=== PATIENT | female | born 1985 ===

== ENCOUNTER 2024-05-29 11:33 | Outpatient (AMB) | payer OTHER, SELFPAY ==
--- NOTE | 2024-05-29 11:38 | A.OFFPC_ITS ---
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 Required: No Accompanied by: Self / Same As Patient Allergies No Known Allergies Allergy (Verified 05/29/24 11:41) Medication List - Last Reconciled 05/29/24 by Brett Persaud MD No Known Home Meds Tobacco use date assessed: 05/29/24 Dental Screening Dental Screen Date: 05/29/24 Did you have a dental visit in the last 12 months?: Yes Did you have a dental problem in the last 6 months where you did not have access to dental care?: No Was dental information given to patient?: Patient has dentist HPI DISPLAY CARD WRITER visit HPI Details Patient is a 38-year-old female came in today for establish care visit Patient have a strong family history of diabetes Lab order placed to be done fasting She also is in need of OBGYN Last time she has seen OBGYN was years ago Patient is having difficulty with concentration Patient says that she used to be very focused and did well in college with straight A's But now she will be working and her mind wanders off She is also requesting a therapy appointments She will meet with our behavior health coordinator for that I will also refer her to bridge clinic to be evaluated for ADD Follow-up appointment after the lab report if needed PFSH Surgical History Hx of appendectomy Family History Mother No problems noted. Father Throat cancer Mental health problem Substance abuse Social History Housing: House Alcohol intake: never Patient Tobacco Use Status: Never used Tobacco e-Cigarette/Vaping Use: Never Used service: No Current occupational status: employed Current occupation: therapist Current occupational exposures/hazards: No Cognitive needs: No Hearing needs: No Vision needs: No Questionnaire PHQ-9 Over the last 2 weeks, how often have you been bothered by any of the following problems? 1. Little interest or pleasure in doing things: several days 2. Feeling down, depressed, or hopeless: not at all 3. Trouble falling or staying asleep, or sleeping too much: not at all 4. Feeling tired or having little energy: not at all 5. Poor appetite or overeating: not at all 6. Feeling bad about yourself - or that you are a failure or have let yourself or your family down: several days 7. Trouble concentrating on things, such as reading the newspaper or watching television: nearly every day 8. Moving or speaking so slowly that other people could have noticed. Or the opposite - being so fidgety or restless that you have been moving around a lot more than usual: not at all 9. Thoughts that you would be better off or of hurting yourself in some way: not at all Total score: 5 Depression Screening Interpretation: Negative Depression Screening Done: Yes 08258 - PHQ-9 Billing: Yes Source: Developed by Drs. Herve Hill, Claudette Warner, Jonathan Dutton and colleagues, with an educational stewart from [employer]. Thrive Questionnaire Date Thrive assessed: 05/29/24 I am a: Patient What is your living situation today?: I have a place to live, but I am worried about losing it in the future Within the past 12 months, did the food you bought not last and you didn't have the money to get more?: I choose not to answer this question Within the past 12 months, did you worry whether your food would run out before you got money to buy more?: I choose not to answer this question Do you have trouble paying for medicines?: I choose not to answer this question Do you have trouble getting transportation to medical appointments?: No Do you have trouble paying your heating and electricity bill?: No Do you have trouble taking care of your child, family member or friend?: No Do you have trouble with day-to-day activities such as bathing, preparing meals, shopping, managing finances, etc.?: No Are you interested in more education?: I choose not to answer this question Please select the resources that you would like help with: None Currently or been in a relationship where the following occur: No concerns reported THRIVE Score: 1 AUDIT C Alcohol Use Questionnaire (AUDIT-C) 1. How often do you have a drink containing alcohol?: Monthly or less 2. How many drinks containing alcohol do you have on a typical day when you are drinking?: 1 or 2 3. How often do you have six or more drinks on one occasion?: Never Total Score: 1 NICOLAS-7 AMB Questionnaire NICOLAS-7 Feeling nervous, anxious, or on edge: 0 = Not at all Not being able to stop or control worryin = Not at all Worrying too much about different things: 0 = Not at all Trouble relaxin = Not at all Being so restless that it is hard to sit still: 0 = Not at all Becoming easily annoyed or irritable: 0 = Not at all Feeling afraid as if something awful might happen: 0 = Not at all Total NICOLAS-7 score (0-4 normal; 5-9 mild; 10-14 moderate; 15-21 severe): 0 Source: Developed by Drs. Herve Hill, Claudette Warner, Jonathan Dutton and colleagues, with an educational stewart from [employer]. Review of Systems Const Denies chills, Denies fever(s) and Denies headache(s) Eyes Denies blurry vision ENT Denies headache(s), Denies nasal discharge, Denies nasal obstruction, Denies odynophagia and Denies sinus pain Card Denies chest pain at rest and Denies chest pain with activity Resp Denies cough and Denies hemoptysis GI Denies diarrhea, Denies odynophagia, Denies vomiting and Denies hematemesis Reports as per HPI Musc Denies abnormal gait Skin/Breast Reports as per HPI Neuro Denies Neuro-related abnormal movements, Denies Abnormal speech present, Denies abnormal gait, Denies headache(s) and Denies Sensory deficit (Neuro) Psych Denies mood swings and Denies paranoia Endo Reports as per HPI Kam/Lymph Reports as per HPI Aller/Immun Reports as per HPI Physical exam (Primary Care) Vital Signs: Last Vital Signs Pulse 75 05/29/24 11:41 BP 122/80 05/29/24 11:41 Pulse Ox 98 05/29/24 11:41 BMI result Body Mass Index 26.5 Tobacco/Smoking Status: Tobacco use Status Tobacco use date assessed 05/29/24 05/29/24 11:45 Patient Tobacco Use Status Never used Tobacco 05/29/24 11:45 e-Cigarette/Vaping Use Never Used 05/29/24 11:45 PHQ-9: PHQ-9 Score PHQ-9: Total score 5 05/29/24 12:06 Depression Screening Interpretation: Negative Thrive Assessment: Date of Thrive Assessment Date Thrive assessed 05/29/24 05/29/24 11:39 Currently or been in a relationship where the following occur: No concerns reported Const General: cooperative, comfortable and no acute distress Orientation/consciousness: patient oriented x3 HENMT Head: Yes normocephalic and Yes atraumatic Eyes General: appearance normal, both eyes and all related structures Pupils: Equal, round and reactive pupils present EOM: EOMs intact bilaterally Neck Neck: Yes supple and No lymphadenopathy Thyroid: Thyroid normal Lymphatic: no lymphadenopathy noted Chest Breast/axilla palpation: normal palpation of the breasts Resp Effort & Inspection: normal respiratory effort and able to speak in complete sentences Auscultation: clear to auscultation bilaterally Cardio Heart sounds: S1 normal heart sound present and S2 normal heart sound present GI Palpation (GI): Soft to palpation and nontender Auscultation: normal bowel sounds General: Yes no CVA tenderness Back/Spine/Pelvis Back: no CVA tenderness Skin General skin exam: elasticity normal and turgor normal Neuro General: patient oriented x3 and gait normal Cranial nerves: Yes Equal, round and reactive pupils present Speech: No Abnormal speech present Sensory Exam: No Sensory deficit (Neuro) Coordination: tandem gait normal and Romberg test negative Extrem General: Yes normal exam except as noted and No edema Assessment and Plan Assessment & Plan (1) Encounter for general adult medical examination with abnormal findings: Code(s): Z00.01 - Encounter for general adult medical examination with abnormal findings (2) Disturbed concentration: Code(s): R41.840 - Attention and concentration deficit (3) Mood disorder: Code(s): F39 - Unspecified mood [affective] disorder (4) Family history of diabetes mellitus: Code(s): Z83.3 - Family history of diabetes mellitus Plan Patient is a 38-year-old female came in today for establish care visit Patient have a strong family history of diabetes Lab order placed to be done fasting She also is in need of OBGYN Last time she has seen OBGYN was years ago Patient is having difficulty with concentration Patient says that she used to be very focused and did well in college with straight A's But now she will be working and her mind wanders off She is also requesting a therapy appointments She will meet with our behavior health coordinator for that I will also refer her to bridge clinic to be evaluated for ADD Follow-up appointment after the lab report if needed Orders: Orders Lipid Panel Today F39 - Unspecified mood [affective] disorder, R41.840 - Attention and concentration deficit, Z00.01 - Encounter for general adult medical examination with abnormal findings, Z83.3 - Family history of diabetes mellitus TSH reflex Free T4 Today F39 - Unspecified mood [affective] disorder, R41.840 - Attention and concentration deficit, Z00.01 - Encounter for general adult medical examination with abnormal findings, Z83.3 - Family history of diabetes mellitus Complete Blood Count Auto Diff Today F39 - Unspecified mood [affective] disorder, R41.840 - Attention and concentration deficit, Z00.01 - Encounter for general adult medical examination with abnormal findings, Z83.3 - Family history of diabetes mellitus Comprehensive [place]. Panel Fast Today F39 - Unspecified mood [affective] disorder, R41.840 - Attention and concentration deficit, Z00.01 - Encounter for general adult medical examination with abnormal findings, Z83.3 - Family history of diabetes mellitus Referrals HARNESS RIGGER Referral Z01.419 - Encounter for gynecological examination (general) (routine) without abnormal findings Psychiatry Referral R41.840 - Attention and concentration deficit Coding Level of Care Code New Pt Level 3 (19213) New Pt Prev Care 18-39yr(46696 Diagnoses Encounter for general adult medical examination with abnormal findings Z00.01 Disturbed concentration R41.840 Mood disorder F39 Family history of diabetes mellitus Z83.3
[2024-05-29 11:41] VITALS: BP 122/80; PULSE 75; O2SAT 98; BMI 26.5
== END 2024-05-29 12:23 | disposition home or self-care (01) ==
PROVIDERS: PCP Internal Medicine; Visit Provider Internal Medicine
DX: Z00.00 Encounter for general adult medical examination without abnormal findings (principal); R41.840 Attention and concentration deficit; F39 Unspecified mood [affective] disorder; Z83.3 Family history of diabetes mellitus

== ENCOUNTER → 2024-05-29 11:33 | Outpatient (BNVA) | payer OTHER, SELFPAY | PROVIDERS: PCP Internal Medicine; Visit Provider Internal Medicine | DX: Z00.01 Encounter for general adult medical examination with abnormal findings (principal); R41.840 Attention and concentration deficit; F39 Unspecified mood [affective] disorder; Z83.3 Family history of diabetes mellitus | CPT/HCPCS: 96127 ==

== ENCOUNTER 2024-05-30 10:42 | Outpatient (REF) | payer OTHER, SELFPAY ==
[2024-05-30 13:12] LABS: MANUAL DIFF FLAG NO
[2024-05-30 13:18] LABS: Basophils Percent Auto 0.3 % (0-2); Eosinophils Percent Auto 0.6 % (0-4); Hematocrit 39.5 % (37.0-47.0); Hemoglobin 12.7 g/dl (12.0-16.0); Imm Gran Abs Auto 0.02 X10*3/uL (0.00-0.03); Imm Gran Pct Auto 0.3 % (0.0-0.4); Lymphocytes Absolute Auto 3.2 X10*3/uL (1.2-4.9); Lymphocytes Percent Auto 45.9 % (20-40); Mean Corpuscular HGB Conc 32.2 g/dl (31.0-35.0); Mean Corpuscular Hemoglobin 27.7 pg (27.0-33.0); Mean Corpuscular Volume 86.1 fL (80.0-98.0); Mean Platelet Volume 9.3 fL (9.4-12.3); Monocytes Absolute Auto 0.6 X10*3/uL (0.1-1.2); Monocytes Percent Auto 8.3 % (2-11); Neutrophils Absolute Auto 3.1 x10*3/uL (2.0-8.3); Neutrophils Percent Auto 44.6 % (45-73); Platelet Count 268 X10*3/uL (160-400); Red Blood Count 4.59 X10*6/uL (4.20-5.50); White Blood Count 6.9 X10*3/uL (4.8-10.8)
[2024-05-30 14:08] LABS: Alanine Aminotransferase 18 U/L (0-31); Albumin Level 4.1 g/dL (3.5-5.0); Alkaline Phosphatase 59 U/L (39-117); Anion Gap 11 (12-20); Aspartate Amino Transferase 21 U/L (5-31); Bilirubin Total 0.7 mg/dL (0.0-1.0); Blood Urea Nitrogen 8 mg/dL (9-16); Calcium 9.5 mg/dL (8.4-10.2); Carbon Dioxide 25 mmol/L (22-29); Chloride 108 mmol/L (96-108); Cholesterol 174 mg/dL (<200); Estimated Glomerular Filt Rate > 60; Glucose Fasting 90 mg/dL (60-99); HDL Cholesterol 43 mg/dL (>40); LDL Cholesterol Calculated 109 mg/dL (<100); Potassium 3.8 mmol/L (3.3-5.1); Sodium 140 mmol/L (135-145); TSH reflex Free T4 0.69 uIU/mL (0.32-4.0); Total Protein 7.4 g/dL (6.5-8.0); Triglycerides 112 mg/dL (<150)
== END 2024-05-30 10:43 | disposition home or self-care (01) ==
LOC: HO.HMGCLDS 10:42
PROVIDERS: PCP Internal Medicine; Visit Provider Internal Medicine
DX: Z00.01 Encounter for general adult medical examination with abnormal findings (principal); R41.840 Attention and concentration deficit; F39 Unspecified mood [affective] disorder; Z83.3 Family history of diabetes mellitus
CPT/HCPCS: 36415; 80053; 80061; 84443; 85025

== ENCOUNTER 2024-10-19 10:32 | Outpatient (REF) | payer OTHER, SELFPAY ==
--- OUTSIDE RECORDS SUMMARY | 2024-10-19 12:31 | XMS_ITS | Clinical Summary ---
Author Organization [facility] Address [address] [place] [address] Care Team Providers Care Obiee Obia Solution Architect Name Role Phone Bing Schaefer NP Primary Care Provider Source Comments PLEASE NOTE, if this patient is a minor, it may be UNLAWFUL to discuss sensitive information that is contained in these records (such as FAMILY PLANNING, MENTAL HEALTH or SUBSTANCE ABUSE) with the minor patient's parent or other person without the patient's specific authorization.[facility] Allergies No known active allergies Medications No known medications Active Problems No known active problems Social History Tobacco Use Types Packs/Day Years Used Date Smoking Tobacco: Never Passive Smoke Exposure: Never Smokeless Tobacco: Never Tobacco Cessation:Counseling Given: Yes Alcohol Use Standard Drinks/Week Comments Never 0 (1 standard drink = 0.6 oz pur e alcohol) Social Connections Answer Date Recorded Connectedness 0 05/22/2024 Financial Resource Strain Answer Date R ecorded Financial Resource Strain 0 2022 Stress Answer Date Recorded Stress 0 07/15/2023 Physical Activity Answer Date Recorded Physical Activity 0 07/15/2023 Food Insecurity Answer Date Recorded Food 0 06/07/2024 Transportation Needs Answer Date Record ed Transportation 0 07/15/2023 Housing Stability Answer Date Recorded Housing 0 07/15/2023 Safety and Environment Answer Date Ish rded Safety 1 09/30/2023 Utilities Answer Date Recorded Utilities 0 07/15/2023 Employment Answer Date Recorded Stress 0 09/30/2023 Comments Unknown Sex and Gender Information Value Date Recorded Sex Assigned at Female 07/15/2023 7:44 AM PDT Legal Sex Female 7:44 AM PDT Gender Identity Female 07/15/2023 7:44 AM PDT Sexual Orientation Straight 07/15/2023 7: 44 AM PDT Last Filed Vital Signs Vital Sign Reading Time Taken Comments Blood Pressure 114/68 09/30/2023 10:11 AM EST Pulse 88 09/30/2023 10:11 AM EST Temperature 36.8 ??C (98.3 ??F) 09/30/2023 10:[address] Respiratory Rate 20 09/30/2023 10:11 AM EST Oxygen Saturation - - Inhaled Oxygen Concentration - - Weight 72.7 kg (160 lb 3.2 oz) 09/30/2023 10:11 AM EST Height 162.6 cm (5' 4 ) 09/30/2023 10:11 AM EST Body Mass Index 27.5 09/30/2023 10:11 AM EST Plan of Treatment Health Maintenance Due Date Last Done Comments Dental FMX/Pano 1985 Dental Perio Charting 1985 Diabetes Screening 1985 HPV Screening 1985 Hepatitis C Screening 1985 Pap + HPV 1985 Tobacco Screening 1985 HIV Screening 2000 Imm-DTaP/Tdap/Td (1 - Tdap) 2004 Imm-Hepatitis B (1 of 3 - 19+ 3-dose series) 5 Cervical Cancer Screening 2006 Pap Smear 2006 [id number] ( season) 2024 Imm-Influenza (#1) 2024 Dental Examination 07/27/2024 07/25/2023 Dental Prophy 07/29/2024 07/27/2023 Alcohol and Drug Screen 09/12/2024 09/30/2023 Depression Annual Screen 09/12/2024 09/30/2023 Annual Preventive Care Visit 09/30/2024 09/30/2023 Relationship Safety Screening/Counseling 09/30/2024 09/30/2023 Hypertension Screening (#1) 09/29/2026 Cervical Ablation/Cold-Knife Conization Discontinued Cervical Cryotherapy Discontinued Colposcopy Discontinued Endometrial Biopsy Discontinued Excision/Leep Discontinued HPV Genotyping Discontinued Vaginal Pap Discontinued Vulvoscopy Discontinued Procedures Procedure Name Priority Date/Time Associated Diagnosis Comments Full PROPHYLAXIS - ADULT Routine 07/27/2023 1:00 PM EST Encounter for dental examination COMP ORAL EVALUATION - NEW/ESTABLISHED PATIENT Routine 07/25/2023 2:00 PM EST Encounter for dental examination from Last 3 Months or Most Recently Relevant to Health Maintenance Insurance [employer] [place] Member Subscriber Plan / Payer (Ef fective 2023-Present) Name:Bee Cueto Relation to Subscriber:Self Name:Bee Cueto Payer ID:[id number] Type:Indemnity Address: [facility] [id number] [place] [id number] Care Teams Obiee Obia Solution Architect Relationship Specialty Start Date End Date Bing Schaefer NP [address] [place] [address] PCP - General Internal Medicine 10/07/23
[2024-10-29 09:06] LABS: HPV Genotype 16 Negative (Negative); HPV Genotype 18 Negative (Negative); HPV High Risk Positive (Negative)
== END 2024-10-19 10:33 | disposition home or self-care (01) ==
LOC: HO.LNP 10:32
PROVIDERS: PCP Internal Medicine; Visit Provider Advanced Practice Midwife
DX: Z00.00 Encounter for general adult medical examination without abnormal findings (principal); Z12.4 Encounter for screening for malignant neoplasm of cervix; N87.0 Mild cervical dysplasia; R87.810 Cervical high risk human papillomavirus (HPV) DNA test positive
CPT/HCPCS: 87626; 88175

== ENCOUNTER → 2024-10-19 10:32 | Outpatient (AMB) | payer OTHER, SELFPAY | END | disposition home or self-care (01) | PROVIDERS: PCP Internal Medicine; Visit Provider Advanced Practice Midwife | CPT/HCPCS: 99385; 99459 ==

== ENCOUNTER 2024-10-19 11:28 | Outpatient (REF) | payer OTHER, SELFPAY ==
[2024-10-20 12:17] LABS: Bacterial Vaginosis PCR NEGATIVE (Negative); Candida Group PCR DETECTED (Not Detect); Candida glab krusei PCR NOT DETECTED (Not Detect); Trichomonas vaginalis PCR NOT DETECTED (Not Detect)
[2024-10-20 12:31] LABS: CT PCR NOT DETECTED (Not Detect.); NG PCR NOT DETECTED (Not Detect.)
== END 2024-10-19 11:29 | disposition home or self-care (01) ==
LOC: HO.LAB 11:28
PROVIDERS: Visit Provider Advanced Practice Midwife
DX: N89.8 Other specified noninflammatory disorders of vagina (principal); Z20.2 Contact with and (suspected) exposure to infections with a predominantly sexual mode of transmission
CPT/HCPCS: 81515; 87491; 87591

== ENCOUNTER 2024-11-30 09:01 | Outpatient (REF) | payer OTHER, SELFPAY | END 2024-11-30 09:02 | disposition home or self-care (01) | LOC: HO.LNP 09:01 | PROVIDERS: PCP Internal Medicine; Visit Provider Obstetrics & Gynecology | DX: R87.612 Low grade squamous intraepithelial lesion on cytologic smear of cervix (LGSIL) (principal) | CPT/HCPCS: 57454; 88305 ==

== ENCOUNTER 2024-11-30 09:01 | Outpatient (AMB) | payer OTHER, SELFPAY ==
--- NOTE | 2024-11-30 09:02 | MHC.OFFVIS ---
Intake Visit Reasons: Colposcopy Process Stripper Required: Yes Process Stripper Language: Peoplesoft Crm Developer Services: Process Stripper Present (in person) Process Stripper Name: CHERYL Johnston Information Interpreted: non-clinical & clinical Insurance Underwriting Assistant: Insurance Underwriting Assistant Present (Francoise) Accompanied by: Self / Same As Patient Allergies No Known Allergies Allergy (Verified 11/30/24 09:08) HPI Comments Details: Presenting for abnormal Pap smear LGSIL HPV high-risk positive, HPV 16/18 negative PFSH Surgical History Hx of appendectomy Family History Mother No problems noted. Father Throat cancer Mental health problem Substance abuse Social History Housing: House Alcohol intake: never Patient Tobacco Use Status: Never used Tobacco e-Cigarette/Vaping Use: Never Used service: No Current occupational status: employed Current occupation: therapist Current occupational exposures/hazards: No Cognitive needs: No Hearing needs: No Vision needs: No Female Reproductive History Menstrual Age of Menarche: 12 Review of Systems Const All systems reviewed & are unremarkable except as noted in HPI and below Reports as per HPI and Reports no additional complaints GI Reports no additional complaints Reports no additional complaints Office Procedures Colposcopy Colposcopy: Pre-Procedure Counseling: Before beginning the procedure, I conducted comprehensive counseling with the patient. We thoroughly discussed the procedure itself, including its details, alternatives, and all associated risks. This included but not limited to the following complications such as bleeding, infection, and injury to the vagina, bladder, and vessels, as well as the potential need for transfusion with all its associated risks. Subsequently, the patient sign the consent. Pap smear result: LSIL. Urine test in office = Negative Procedure: During the procedure, the following steps were performed: A speculum was inserted, and acetic acid was applied. Colposcopy was conducted, allowing visualization of the transformation zone. Acetowhite lesions were identified at the 6+ 7+ 9+ 12+ 3 o'clock position. Cervical biopsies were obtained from the 6+ 7+ 9+ 12+ 3 o'clock position, followed by an endocervical curettage (ECC). Vaginoscopy of the upper vagina revealed no evidence of aceto-white lesions. Hemostasis was achieved using Monsel solution, and the patient tolerated the procedure well. Post-Procedure Instructions: The patient was advised to promptly contact the office or the after hours answering service or go to the emergency room if experiencing a temperature exceeding 100.4?F, abdominal pain, nausea/vomiting, or bleeding. Additionally, the patient was instructed to abstain from vaginal intercourse and bathtub use. The patient confirmed understanding of these instructions. Discharge Instructions: The patient was instructed to schedule a follow-up appointment in 2 weeks for further evaluation and management. Please note that this note was generated using a voice recognition program, and errors may have occurred during specifications writer. 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 the false positive/negative rate of a Pap smear as a screening test in detecting cervical cancer and the indication for a diagnostic test -colposcopy, biopsy, endocervical curettage. The patient verbalized understanding and agreed with the plan, all questions answered. Colpo biopsy ECC done, see procedure note Orders: Orders AMB Colposcopy Today R87.612 - Low grade squamous intraepithelial lesion on cytologic smear of cervix (LGSIL) Coding Level of Care Code Procedure Only Diagnoses LGSIL on Pap smear of cervix R87.612 CPT Codes Colposcopy - CPT: 28299-Vyiqugvib of cervix including upper vagina with biopsy and ECC ([id number])
== END 2024-11-30 09:44 | disposition home or self-care (01) ==
LOC: HO.HWS 09:01
PROVIDERS: PCP Internal Medicine; Visit Provider Obstetrics & Gynecology
DX: R87.612 Low grade squamous intraepithelial lesion on cytologic smear of cervix (LGSIL) (principal)
CPT/HCPCS: 57454

== ENCOUNTER 2024-12-18 09:03 | Outpatient (AMB) | payer OTHER, SELFPAY ==
--- NOTE | 2024-12-18 09:05 | MHC.OFFVIS ---
Vital Signs 12/18/24 09:06 Height 5 ft 4 in Weight 157 lb BMI 26.9 Intake Visit Reasons: Colpo results Midlevel Provider Required: No Information Interpreted: non-clinical & clinical Accompanied by: Self / Same As Patient Allergies No Known Allergies Allergy (Verified 12/18/24 09:06) HPI Comments Details: Presenting post colpo for follow-up. The patient is doing well with no complaints. The pathology showed the following: A. Endocervix, curettage: Small fragments of inflamed endocervical and cervical transformation zone mucosa with reactive changes. B. Cervix, 3 o'clock, biopsy: - Squamous mucosa within normal limits. - No endocervical epithelium identified. C. Cervix, 6 o'clock, biopsy: - Squamous mucosa within normal limits. - No endocervical epithelium identified. D. Cervix, 7 o'clock, biopsy: - Squamous mucosa within normal limits. - No endocervical epithelium identified. E. Cervix, 9 o'clock, biopsy: - Inflamed squamous mucosa with reactive changes. - No endocervical epithelium identified. F. Cervix, 12 o'clock, biopsy: - Squamous mucosa within normal limits. - No endocervical epithelium identified. [facility] Surgical History Hx of appendectomy Family History Mother No problems noted. Father Throat cancer Mental health problem Substance abuse Social History Housing: House Alcohol intake: never Patient Tobacco Use Status: Never used Tobacco e-Cigarette/Vaping Use: Never Used service: No Current occupational status: employed Current occupation: therapist Current occupational exposures/hazards: No Cognitive needs: No Hearing needs: No Vision needs: No Female Reproductive History Menstrual Age of Menarche: 12 Review of Systems Const All systems reviewed & are unremarkable except as noted in HPI and below Reports as per HPI and Reports no additional complaints GI Reports no additional complaints Reports no additional complaints Physical Exam Vital Signs: BMI result Body Mass Index 26.9 Assessment & Plan Assessment & Plan (1) 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 Discussed with the patient the sensitivity specificity, positive and negative predictive value in detecting cervical cancer in addition discussed the regression, persistence and progression rates. Recommended co-testing in 12 months, if cytology and or HPV are abnormal will proceed was colposcopy biopsy and endocervical curettage. Instructions given to the patient to schedule a co test appointment in 1 year. All questions answered the patient verbalized understanding. Coding Level of Care Code Est Pt Level 3 (92533) Diagnoses LGSIL on Pap smear of cervix R87.612
[2024-12-18 09:06] VITALS: BMI 26.9
--- OUTSIDE RECORDS SUMMARY | 2024-12-18 09:54 | XMS_ITS | Clinical Summary ---
Author Organization [facility] Address [address] [place] [address] Care Team Providers Care Reference Library Assistant Name Role Phone Bing Schaefer NP Primary [...] 09/30/2023 10:11 AM EST Plan of Treatment Upcoming Encounters Date Type Department Care Team (Late st Contact Info) Description 01/21/2025 10:20 AM EDT Office Visit [facility] [address] [place] [id number] Bing Schaefer NP [address] [place] [address] Health Maintenance Due Date Last Done Comments Anxiety Screening 1985 Dental FMX/Pano 1985 Dental Perio Charting 1985 Diabetes Screening 1985 HPV Screening 1985 Hepatitis C Screening 1985 Pap + HPV 1985 Tobacco Screening 1985 HIV Screening 2000 Imm-DTaP/Tdap/Td (1 - Tdap) 2004 Imm-Hepatitis B (1 of 3 - 19+ 3-dose series) 5 Cervical Cancer Screening 2006 Pap Smear 2006 [id number] () 05/13/2024 Imm-Influenza (#1) 2024 Dental Examination 07/27/2024 07/25/2023 [...] to Health Maintenance Insurance [employer] [facility] Member Subscriber Plan / Payer (Ef fective 2023-Present) Name:Willian Hyatt Aprilnoemy Relation to Subscriber:Self Name:Bee Cueto Payer ID:[id number] Type:Indemnity Address: [facility] [id number] [place] [phone] Care Teams Reference Library Assistant Relationship Specialty Start Date End Date Bing Schaefer NP [address] [place] [address] PCP - General Internal Medicine 10/07/23
== END 2024-12-18 09:40 | disposition home or self-care (01) ==
LOC: HO.HWS 09:03
PROVIDERS: PCP Internal Medicine; Visit Provider Obstetrics & Gynecology
DX: R87.612 Low grade squamous intraepithelial lesion on cytologic smear of cervix (LGSIL) (principal)
CPT/HCPCS: 99213

== ENCOUNTER 2024-12-18 09:03 | Outpatient (REF) | payer OTHER, SELFPAY ==
--- OUTSIDE RECORDS SUMMARY | 2024-12-18 11:19 | XMS_ITS | Clinical Summary ---
Author Organization [facility] Address [address] [place] [address] Care Team Providers Care Telephone Sales Representative Name Role Phone Bing Schaefer NP Primary [...] EDT Office Visit [facility] [address] [place] [phone] Bing Schaefer NP [address] [place] [address] Health Maintenance Due Date Last Done Comments Anxiety Screening 1985 Dental FMX/Pano 1985 Dental Perio Charting 1985 Diabetes Screening 1985 HPV Screening 1985 Hepatitis C Screening 1985 Pap + HPV 1985 Tobacco Screening 1985 HIV Screening 2000 Imm-DTaP/Tdap/Td (1 - Tdap) 2004 Imm-Hepatitis B (1 of 3 - 19+ 3-dose series) 5 Cervical Cancer Screening 2006 Pap Smear 2006 [id number] () 05/13/2024 Imm-Influenza (#1) 2024 Dental Examination [...] to Health Maintenance Insurance [employer] [facility] Member Subscriber Plan / Payer (Ef fective 2023-Present) Name:Willian Hyatt Aprilnoemy Relation to Subscriber:Self Name:Bee Cueto Payer ID:[id number] Type:Indemnity Address: [facility] [id number] [place] [phone] Care Teams Telephone Sales Representative Relationship Specialty Start Date End Date Bing Schaefer NP [address] [place] [address] PCP - General Internal Medicine 10/07/23
[2024-12-18 11:26] LABS: Syphilis Screen Nonreactive (Nonreactive)
[2024-12-18 11:27] LABS: HBsAGNum1 0.28 S/CO (0.00-0.99); HIV AB/AG Nonreactive (Nonreactive); HIV Num 1 0.07 S/CO (0.00-0.99); Hepatitis B Surface Antigen Negative (Negative); ~HepC Num1 0.18 S/CO (0.00-0.79); ~Hepatitis C Antibody Nonreactive (Nonreactive)
== END 2024-12-18 09:04 | disposition home or self-care (01) ==
LOC: HO.LAB 09:03
PROVIDERS: PCP Internal Medicine; Visit Provider Advanced Practice Midwife
DX: Z01.419 Encounter for gynecological examination (general) (routine) without abnormal findings (principal)
CPT/HCPCS: 36415; 86780; 86803; 87340; 87389

== ENCOUNTER 2025-06-07 10:20 | Outpatient (REF) | payer OTHER, SELFPAY ==
[2025-06-07 13:16] LABS: MANUAL DIFF FLAG NO
[2025-06-07 13:21] LABS: Appearance Urine Clear; Glucose Urine UA Negative (Negative); PH 6.0 (5.0-9.0); Specific Gravity - Urine 1.020 (1.005-1.025); UMIC TRIGGER UACC YES
[2025-06-07 13:29] LABS: Hematocrit 39.5 % (37.0-47.0); Hemoglobin 12.9 g/dl (12.0-16.0); Imm Gran Abs Auto 0.02 X10*3/uL (0.00-0.03); Imm Gran Pct Auto 0.3 % (0.0-0.4); Lymphocytes Absolute Auto 2.6 X10*3/uL (1.2-4.9); Mean Corpuscular HGB Conc 32.7 g/dl (31.0-35.0); Mean Corpuscular Hemoglobin 28.2 pg (27.0-33.0); Mean Corpuscular Volume 86.2 fL (80.0-98.0); NRBC Abs Auto 0.000 X10*3/uL (0.0-0.012); NRBC Pct Auto 0.0 /100WBC (0.0-0.2); Platelet Count 279 X10*3/uL (160-400); Red Blood Count 4.58 X10*6/uL (4.20-5.50); White Blood Count 7.1 X10*3/uL (4.8-10.8)
[2025-06-07 13:39] LABS: UACC Culture Trigger YES
[2025-06-07 14:19] LABS: Alanine Aminotransferase 16 U/L (0-31); Albumin Level 4.5 g/dL (3.5-5.0); Alkaline Phosphatase 57 U/L (39-117); Anion Gap 10 (12-20); Aspartate Amino Transferase 24 U/L (5-31); Blood Urea Nitrogen 7 mg/dL (9-16); Calcium 9.3 mg/dL (8.4-10.2); Carbon Dioxide 23 mmol/L (22-29); Chloride 111 mmol/L (96-108); Estimated Glomerular Filt Rate > 60; Potassium 4.0 mmol/L (3.3-5.1); Sodium 140 mmol/L (135-145); Total Protein 7.4 g/dL (6.5-8.0)
[2025-06-08 13:58] LABS: Rubeola IgG (Measles) <13.50 AU/mL
== END 2025-06-07 10:21 | disposition home or self-care (01) ==
LOC: HO.HMGCLDS 10:20
PROVIDERS: PCP Internal Medicine; Visit Provider Internal Medicine
DX: Z23 Encounter for immunization (principal); Z00.01 Encounter for general adult medical examination with abnormal findings; R82.90 Unspecified abnormal findings in urine; Z28.39 Other underimmunization status
CPT/HCPCS: 36415; 80053; 81001; 83721; 85025; 86735; 86762; 86765; 86787; 87086; 87088; 87186; 90471; 90656; 96127

== ENCOUNTER 2025-06-07 10:20 | Outpatient (AMB) | payer OTHER, SELFPAY ==
[2025-06-07 10:28] VITALS: BP 118/72; PULSE 70; O2SAT 98; BMI 27.3
--- NOTE | 2025-06-07 10:28 | MHC.PC.OV ---
Vital Signs 06/07/25 10:28 Height 5 ft 4 in Weight 159 lb BMI 27.3 BP 118/72 Blood Pressure Location Rt brachial Position Sitting Pulse 70 Pulse Source Pulse Oximeter Pulse Oximetry (%) 98 Intake Visit Reasons: Annual PE Variety Performer Required: No Accompanied by: Self / Same As Patient Allergies No Known Allergies Allergy (Verified 06/07/25 10:28) Medication List - Last Reconciled 06/07/25 by Brett Persaud MD No Known Home Meds Tobacco use date assessed: 06/07/25 Dental Screening Dental Screen Date: 06/07/25 Did you have a dental visit in the last 12 months?: Yes Did you have a dental problem in the last 6 months where you did not have access to dental care?: No Was dental information given to patient?: Patient has dentist HPI Annual PE HPI Details History of Present Illness The patient is a 39-year-old female presenting for a 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 Strong urine odor: - The patient reports a strong odor in her urine. - The patient denies any associated pain or burning sensation. - She has been monitoring her water intake and attempts to drink more water. Emotional stress: - Reports feeling overwhelmed, especially on Tuesday when she cried. - The patient has started her master's program, which adds to her stress. - She lives alone and occasionally experiences stress due to workload and study commitments. Social History: - Currently studying for a master's in social work through an online platform. 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 - Mentioned being overwhelmed with studies and related commitments. - Reports increased water consumption to assess the impact on urine odor. Health Maintenance - Needs flu vaccine administration. Medications - Currently not taking any medications. Patient Instructions - Continue consuming lots of water. - Attain flu vaccination during the visit. - Proceed for a blood test to assess vaccination status and other baseline health markers. - Return for results and paperwork completion once reports are ready. - f.u Obgyn Review of Systems - General: No fever no chills - Neurological: No headaches no dizziness - Ear nose throat: No sore throat no hearing difficulty no ear pain - Cardiovascular: No syncope, no chest pain, no palpitations - Gastrointestinal: No nausea vomiting or diarrhea - Endocrine: No polyuria polydipsia no heat intolerance - Genitourinary: No dysuria - Skin: No new complaints Physical Exam General: Cooperative, healthy appearing, comfortable, no acute distress Orientation: Patient oriented x3 Limitations: none Head: Normal to inspection Ears: Within normal limit visually Nose: Normal external nose present Face and sinus: Normal facial exam Eyes: Appearance normal, extraocular movement intact pupils reactive Neck: Normal visual inspection and supple Respiratory: Normal respiratory effort and able to speak in complete sentences. Clear to auscultation, no stridor Cardiovascular: S1 and S2 RRR Breast exam thru Obgyn GI: Normal to inspection. Soft to palpation and nontender Skin: Turgor normal, no acute findings Neuro: Patient oriented x3, motor sensory intact, balance intact, tandem pass Extremities: Normal to inspection, ROM intact . PFSH Surgical History Hx of appendectomy Family History Mother No problems noted. Father Throat cancer Mental health problem Substance abuse Social History Housing: House Alcohol intake: never Patient Tobacco Use Status: Never used Tobacco e-Cigarette/Vaping Use: Never Used service: No Current occupational status: employed Current occupation: therapist Current occupational exposures/hazards: No Cognitive needs: No Hearing needs: No Vision needs: No Female Reproductive History Menstrual Age of Menarche: 12 Questionnaire PHQ-9 Over the last 2 weeks, how often have you been bothered by any of the following problems? 1. Little interest or pleasure in doing things: not at all 2. Feeling down, depressed, or hopeless: not at all 3. Trouble falling or staying asleep, or sleeping too much: not at all 4. Feeling tired or having little energy: not at all 5. Poor appetite or overeating: not at all 6. Feeling bad about yourself - or that you are a failure or have let yourself or your family down: not at all 7. Trouble concentrating on things, such as reading the newspaper or watching television: not at all 8. Moving or speaking so slowly that other people could have noticed. Or the opposite - being so fidgety or restless that you have been moving around a lot more than usual: not at all 9. Thoughts that you would be better off or of hurting yourself in some way: not at all Total score: 0 Depression Screening Interpretation: Negative Depression Screening Done: Yes 24487 - PHQ-9 Billing: Yes Source: Developed by Drs. Herve Hill, Claudette Warner, Jonathan Dutton and colleagues, with an educational stewart from [employer]. Thrive Questionnaire Date Thrive assessed: 06/07/25 I am a: Patient What is your living situation today?: I have a steady place to live Within the past 12 months, did the food you bought not last and you didn't have the money to get more?: Never true Within the past 12 months, did you worry whether your food would run out before you got money to buy more?: I choose not to answer this question Do you have trouble paying for medicines?: No Do you have trouble getting transportation to medical appointments?: No Do you have trouble paying your heating and electricity bill?: Yes Do you have trouble taking care of your child, family member or friend?: No Do you have trouble with day-to-day activities such as bathing, preparing meals, shopping, managing finances, etc.?: No Are you currently unemployed and looking for a job?: No Are you interested in more education?: No Please select the resources that you would like help with: None Currently or been in a relationship where the following occur: No concerns reported THRIVE Score: 1 AUDIT C Alcohol Use Questionnaire (AUDIT-C) 1. How often do you have a drink containing alcohol?: Monthly or less 2. How many drinks containing alcohol do you have on a typical day when you are drinking?: 1 or 2 3. How often do you have six or more drinks on one occasion?: Never Total Score: 1 Score Reviewed/Action Taken: Yes NICOLAS-7 AMB Questionnaire NICOLAS-7 Date NICOLAS - 7 assessed: 06/07/25 Feeling nervous, anxious, or on edge: 0 = Not at all Not being able to stop or control worryin = Not at all Worrying too much about different things: 0 = Not at all Trouble relaxin = Not at all Being so restless that it is hard to sit still: 0 = Not at all Becoming easily annoyed or irritable: 0 = Not at all Feeling afraid as if something awful might happen: 0 = Not at all Total NICOLAS-7 score (0-4 normal; 5-9 mild; 10-14 moderate; 15-21 severe): 0 Source: Developed by Drs. Herve Hill, Claudette Warner, Jonathan Dutton and colleagues, with an educational stewart from [employer]. NICOLAS-7 Assessment Billing NICOLAS-7 Assessment Tool: NICOLAS-7 Assessment 35472 Physical exam (Primary Care) Vital Signs: Last Vital Signs Pulse 70 06/07/25 10:28 BP 118/72 06/07/25 10:28 Pulse Ox 98 06/07/25 10:28 BMI result Body Mass Index 27.3 Tobacco/Smoking Status: Tobacco use Status Tobacco use date assessed 06/07/25 06/07/25 10:29 Patient Tobacco Use Status Never used Tobacco 06/07/25 10:29 e-Cigarette/Vaping Use Never Used 06/07/25 10:29 PHQ-9: PHQ-9 Score PHQ-9: Total score 0 06/07/25 10:51 Depression Screening Interpretation: Negative Thrive Assessment: Date of Thrive Assessment Date Thrive assessed 06/07/25 06/07/25 10:29 Currently or been in a relationship where the following occur: No concerns reported Office Procedures Flu Questionnaire Does the patient have a severe egg allergy?: No Does the patient have severe life threatening allergies?: No Does the patient have a fever or illness today?: No Has the patient ever had Guillain-[place] Syndrome?: No Has the patient ever had any past reaction to a flu shot?: No Immunizations Fluarix [id number] (PF) 45 mcg (15 mcg x 3)/0.5 mL IM syringe Performing Provider: Brett Persaud MD Performing Location: [facility] [place] [facility] Administered by: Javy Rain CMA on 06/07/25 10:51 Dose Route Admin Location Dispensed Lot Number Expiration Date [facility] Client Service Associate 0.5 mL IM Right Deltoid 0.5 mL [id number] 03/11/26 [id number] [employer] VIS Given Date VIS Provided VIS Publication Date 06/07/25 Single Vaccine 24 Eligibility Eligibility Date Funding Source Not [facility] Eligible 06/07/25 Private Coding Level of Care Code Est Pt Level 3 (21020) Est Pt Prev Care 18-39y(29135) Diagnoses Encounter for general adult medical examination with abnormal findings Z00. Bad odor of urine R82.90 Immunizations incomplete Z28.39 Additional Codes NICOLAS-7 Assessment Billing - NICOLAS-7 Assessment Tool: NICOLAS-7 Assessment 20680 ([id number]) PHQ-9 - 26881 - PHQ-9 Billing: Yes ([id number]) Assessment & Plan Assessment & Plan (1) Encounter for general adult medical examination with abnormal findings: Code(s): Z00.01 - Encounter for general adult medical examination with abnormal findings Category: Medical (2) Bad odor of urine: Code(s): R82.90 - Unspecified abnormal findings in urine Category: Medical (3) Immunizations incomplete: Code(s): Z28.39 - Other underimmunization status Category: Medical Plan History of Present Illness The patient is a 39-year-old female presenting for a 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 Strong urine odor: - The patient reports a strong odor in her urine. - The patient denies any associated pain or burning sensation. - She has been monitoring her water intake and attempts to drink more water. Emotional stress: - Reports feeling overwhelmed, especially on Tuesday when she cried. - The patient has started her master's program, which adds to her stress. - She lives alone and occasionally experiences stress due to workload and study commitments. Social History: - Currently studying for a master's in social work through an online platform. 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 - Mentioned being overwhelmed with studies and related commitments. - Reports increased water consumption to assess the impact on urine odor. Health Maintenance - Needs flu vaccine administration. Medications - Currently not taking any medications. Patient Instructions - Continue consuming lots of water. - Attain flu vaccination during the visit. - Proceed for a blood test to assess vaccination status and other baseline health markers. - Return for results and paperwork completion once reports are ready. - f.u Obgyn Orders: Orders Rubella IgG Antibody 06/07/25 R82.90 - Unspecified abnormal findings in urine, Z00.01 - Encounter for general adult medical examination with abnormal findings, Z28.39 - Other underimmunization status Rubeola IgG (Measles) 06/07/25 R82.90 - Unspecified abnormal findings in urine, Z00.01 - Encounter for general adult medical examination with abnormal findings, Z28.39 - Other underimmunization status Varicella IgG Antibody 06/07/25 R82.90 - Unspecified abnormal findings in urine, Z00.01 - Encounter for general adult medical examination with abnormal findings, Z28.39 - Other underimmunization status Complete Blood Count Auto Diff 06/07/25 R82.90 - Unspecified abnormal findings in urine, Z00.01 - Encounter for general adult medical examination with abnormal findings, Z28.39 - Other underimmunization status Comprehensive Met. Panel 06/07/25 R82.90 - Unspecified abnormal findings in urine, Z00.01 - Encounter for general adult medical examination with abnormal findings, Z28.39 - Other underimmunization status Influenza [id number] Immunization 06/07/25 Z23 - Encounter for immunization Mumps Virus IgG Antibody 06/07/25 R82.90 - Unspecified abnormal findings in urine, Z00.01 - Encounter for general adult medical examination with abnormal findings, Z28.39 - Other underimmunization status UA CC w/rflx Micro + Cult 06/07/25 R82.90 - Unspecified abnormal findings in urine, Z00.01 - Encounter for general adult medical examination with abnormal findings, Z28.39 - Other underimmunization status LDL Cholesterol Direct 06/07/25 R82.90 - Unspecified abnormal findings in urine, Z00.01 - Encounter for general adult medical examination with abnormal findings, Z28.39 - Other underimmunization status
--- OUTSIDE RECORDS SUMMARY | 2025-06-07 11:43 | XMS_ITS | Clinical Summary ---
Author Organization [facility] Address [address] [place] [address] Care Team Providers Care Directional Bore Operator Name Role Phone Bing Schaefer NP Primary [...] 88 09/30/2023 10:11 AM EST Temperature 36.8 C (98.3 F) 09/30/2023 10:11 AM EST Respiratory Rate 20 09/30/2023 10:11 AM EST [...] (1 of 3 - 19+ 3-dose series) Cervical Cancer Screening 2006 Pap Smear 2006 Imm-HPV (1 - 3-dose SCDM series) 2012 Dental Examination 07/27/2024 07/25/2023 Dental Prophy 07/29/2024 07/27/2023 Alcohol and Drug Screen 09/12/2024 09/30/2023 Depression Annual Screen 09/12/2024 09/30/2023 Annual Wellness (Adult): Indicated (All Coverage) 09/1209/30/2023 Relationship Safety Screening/Counseling 09/30/2024 09/30/2023 [id number] ( season) 2025 Imm-Influenza (#1) 2025 Hypertension Screening (#1) 09/29/2026 Cervical Ablation/Cold-Knife Conization [...] Health Maintenance Insurance [employer] [place] Member Subscriber Plan / Payer (Ef fective 2023-Present) Name:Bee Cueto Relation to Subscriber:Self Name:Willian Hyatt Bee Payer ID:[id number] Type:Indemnity Address: [facility] [id number] [place] [id number] Care Teams Directional Bore Operator Relationship Specialty Start Date End Date Bing Schaefer NP [address] [place] [address] PCP - General Internal Medicine 10/07/23
== END 2025-06-07 11:12 | disposition home or self-care (01) ==
LOC: HO.HMCC 10:21
PROVIDERS: PCP Internal Medicine; Visit Provider Internal Medicine
DX: Z23 Encounter for immunization (principal)

== ENCOUNTER 2025-06-13 10:08 | Outpatient (AMB) | payer OTHER, SELFPAY ==
--- NOTE | 2025-06-13 10:57 | AM.OFFVISNUR ---
Intake Visit Reasons: MMR booster Intake Note: Pt arrived for MMR booster Allergies No Known Allergies Allergy (Verified 06/07/25 10:28) Immunizations M-M-R II (PF) 1,000-12,500 TCID50/0.5 mL subcutaneous solution Performing Provider: rBett Persaud MD Performing Location: [facility] [place] [facility] Administered by: Hilda Elias RN on 06/13/25 10:57 Dose Route Admin Location Dispensed Lot Number Expiration Date [facility] Packing Line Operator 0.5 mL subcut Left Arm 0.5 mL [id number] 03/13/26 0909-6171-02 [employer] [facility] Total Dispensed Waste 0.5 mL 0 % VIS Given Date VIS Provided VIS Publication Date 06/13/25 Single Vaccine 24 Eligibility Eligibility Date Funding Source Not [facility] Eligible 06/13/25 Private Administration Comments: Diluent Lot # [id number] Exp 01/15/2026 Assessment & Plan Assessment & Plan Orders: Orders MMR Immunization Today Z23 - Encounter for immunization Coding
--- OUTSIDE RECORDS SUMMARY | 2025-06-13 11:32 | XMS_ITS | Clinical Summary ---
Author Organization [facility] Address [address] [place] [address] Care Team Providers Care Adjunct Writing Instructor Name Role Phone Bing Schaefer NP Primary Care Provider [phone] Source Comments PLEASE NOTE, if this patient [...] Coverage) 09/1209/30/2023 Relationship Safety Screening/Counseling 09/30/2024 09/30/2023 [id number] ( season) 2025 Imm-Influenza (#1) 2025 Hypertension [...] Health Maintenance Insurance [employer] [place] Member Subscriber Plan / Payer (Ef fective 2023-Present) Name:Bee Cueto Relation to Subscriber:Self Name:Willian Hyatt Bee Payer ID:[id number] Type:Indemnity Address: [facility] [id number] [place] [phone] Care Teams Adjunct Writing Instructor Relationship Specialty Start Date End Date Bing Schaefer NP [address] [place] [address] PCP - General Internal Medicine 10/07/23
== END 2025-06-13 10:49 | disposition home or self-care (01) ==
LOC: HO.HMCC 10:08
PROVIDERS: PCP Internal Medicine; Visit Provider Internal Medicine
DX: Z23 Encounter for immunization (principal)

== ENCOUNTER → 2025-06-13 10:08 | Outpatient (BNVA) | payer OTHER, SELFPAY | PROVIDERS: PCP Internal Medicine; Visit Provider Internal Medicine | DX: Z23 Encounter for immunization (principal) | CPT/HCPCS: 90471; 90707 ==